=== PATIENT | female | born 1995 | race Caucasian/White ===

== ENCOUNTER 2021-03-09 12:10 | Emergency (ER) | payer SELFPAY ==
[~2021-03-09] VITALS: Ht 149.9 cm; Wt 76.7 kg
[2021-03-09 12:22] VITALS: BP 135/89
--- NOTE | 2021-03-09 12:27 | NUR ---
PT SENT TO LOBBY
--- NOTE | 2021-03-09 13:02 | NUR ---
PT TAKEN TO ULTRASOUND VIA W/C
[2021-03-09 13:09] LABS: BASOPHILS % (AUTO) 0.3 % (0.0-2.0); EOSINOPHILS # (AUTO) 0.1 K/uL (0-0.4); EOSINOPHILS % (AUTO) 0.7 % (0.0-4.0); HEMATOCRIT 42.9 % (36-48); HEMOGLOBIN 14.6 g/dL (12.0-16.0); LYMPHOCYTES # (AUTO) 1.8 K/uL (2.5-16.5); LYMPHOCYTES % (AUTO) 20.4 % (20.5-51.1); MEAN CORPUSCULAR HEMOGLOBIN 31 pg (27-31); MEAN CORPUSCULAR HGB CONC 34 g/dL (33-37); MEAN CORPUSCULAR VOLUME 91.6 fL (80-94); MONOCYTES # (AUTO) 0.7 K/uL (0.8-1.0); NEUTROPHILS # (AUTO) 6.1 K/uL (1.8-7.7); NEUTROPHILS % (AUTO) 70.6 % (42.2-75.2); PLATELET COUNT (AUTO) 372 K/uL (140-450); RED BLOOD CELL COUNT(AUTO) 4.69 MIL/uL (4.20-5.40); RED CELL DISTRIBUTION WIDTH 13.6 % (11.6-13.7); WHITE BLOOD COUNT (AUTO) 8.7 K/uL (4.8-10.8)
--- NOTE | 2021-03-09 13:31 | NUR ---
PT BACK FROM US, WILL WAIT IN LOBBY
[2021-03-09 14:18] LABS: APPEARANCE,URINE CLEAR (CLEAR); BILIRUBIN,URINE NEGATIVE (NEGATIVE); BLOOD, URINE 3+ (NEGATIVE); COLOR,URINE YELLOW (YELLOW); LEUKOCYTE ESTERASE ,URINE NEGATIVE (NEGATIVE); NITRITE, URINE NEGATIVE (NEGATIVE); UGLUCOSE NEGATIVE (NEGATIVE)
[2021-03-09 14:36] LABS: RBC,URINE 50-80 /HPF (0-5)
[2021-03-09 14:40] VITALS: BP 128/87
--- NOTE | 2021-03-09 15:40 | NUR ---
No nursing interventions performed.
--- NOTE | 2021-03-09 15:44 | NUR ---
Patient discharged with v/s stable. Written and verbal after care instructions given and explained. Patient verbalized understanding. Ambulatory with steady gait. All questions addressed prior to discharge. Advised to follow up with PMD.
== END 2021-03-09 15:44 | disposition home or self-care (01) ==
LOC: MED 12:10
DX: O26.851 Spotting complicating pregnancy, first trimester (principal); Z3A.01 Less than 8 weeks gestation of pregnancy
CPT/HCPCS: 36415; 76817; 81001; 84702; 85025; 86900; 86901; 87086; 99284; Q0092

== ENCOUNTER 2021-03-11 07:26 | Emergency (ER) | payer SELFPAY ==
[~2021-03-11] VITALS: Ht 149.9 cm; Wt 76.3 kg
[2021-03-11 07:34] VITALS: BP 143/89
--- NOTE | 2021-03-11 07:41 | NUR ---
PATIENT AMBULATED TO BED 4.
--- NOTE | 2021-03-11 07:50 | NUR ---
25 Y/O FEMALE HERE FOR RECHECK HCG LEVEL. PT STATSE SHE WAS SEEN HERE X2DAYS FOR THREATENED MISCARRAGE, AND TOLD TO COME BACK TODAY. DENIES VAGINAL BLEEDING OR ANY PAIN AT THIS TIME. LMP 01/31/21. 5 WEEKS . [id number]. DENIES FEVER/CHILLS, STATES +N, DENIES VOMITING. DENIES PMH NKA
--- NOTE | 2021-03-11 08:29 | NUR ---
COLLECTED BLOOD LABS, WALKED TO LAB.
--- NOTE | 2021-03-11 09:38 | NUR ---
PT RESTING IN BED, HOB LOWERED, WARM BLANKET PROVIDED.
[2021-03-11 10:15] VITALS: BP 132/76
== END 2021-03-11 10:17 | disposition home or self-care (01) ==
LOC: MED 07:26
DX: O03.4 Incomplete spontaneous abortion without complication (principal)
CPT/HCPCS: 36415; 81002; 81025; 84702; 99283